=== PATIENT | female | born 1940 | race American Indian/Alaskan Native ===

== ENCOUNTER 2017-10-08 12:13 | Emergency (ER) | payer MEDICARE ==
[2017-10-08 12:52] LABS: Basophils % (Auto) 0.6 % (0.0-1.8); Hemoglobin 12.2 gm/dl (10.1-14.3); Lymphocytes % (Auto) 30.8 % (13.4-35.0); Mean Corpuscular HGB Conc 34 % (30-34); Mean Corpuscular Hemoglobin 32 pg (28-32); Mean Corpuscular Volume 93 fl (79-97); Monocytes # (Auto) 0.5 K/mm3 (0.0-0.8); Monocytes % (Auto) 14.8 % (0.0-7.3); Platelet Count 173 K/mm3 (140-440); Red Blood Count 3.87 M/mm3 (3.65-5.03); Red Cell Distribution Width 14.3 % (13.2-15.2)
[2017-10-08 13:46] LABS: BUN/Creatinine Ratio 26; Blood Urea Nitrogen 21 mg/dL (7-17); Calcium 8.9 mg/dL (8.4-10.2); Hemolysis Index 11
[2017-10-08] MEDS ORDERED: K-DUR PO ONE (16:14)
[2017-10-08] MEDS ORDERED: ALUM-MAG HYDROX-SIMETH 200-200-20MG/5ML PO ONE (16:14)
[2017-10-08] MEDS ORDERED: LIDOCAINE VISCOUS 2% PO ONE (16:14)
[2017-10-08] MEDS ORDERED: ZOFRAN ODT PO ONE (16:14)
[2017-10-08] MEDS ORDERED: CARAFATE PO ONE (17:16)
[2017-10-08] MEDS ORDERED: PEPCID PO ONE (17:16)
--- NOTE | 2017-10-08 18:32 | XRay Report ---
FINAL REPORT EXAM: XR ANKLE 3+V LT HISTORY: nontraumatic ankle swelling TECHNIQUE: Frontal, lateral, mortise views left ankle Comparison: None FINDINGS: There is no evidence of fracture, subluxation, lytic or blastic change or periosteal reaction. The mortise joint is maintained. There is soft tissue swelling at the level of the ankle. IMPRESSION: 1. Soft tissue swelling without plain film evidence of bony abnormality. If further imaging is required, CT or MRI may be helpful.
--- NOTE | 2017-10-08 19:18 | Emergency Department Report ---
ED Chest Pain HPI - General Chief Complaint: Chest Pain Stated Complaint: LOWER PAINS Time Seen by Provider: 10/08/17 16:14 Source: patient, family, business records manager Mode of arrival: Ambulatory Limitations: Language Barrier - History of Present Illness Initial Comments: 2 days of substernal chest pain that is worse with food. Having nausea and intermittent vomiting when she eats. Pt says that it feels like acid reflux. Symptoms are nonexertional and nonpleuritic. Nonsmoker. No fam hx of ACS. No h/ o dvt/pe. Pt is also endorsing left lateral ankle pain x3 months, nontraumatic. Able to walk on it, but it does hurt. hasn't seen anyone for it. - Related Data Previous Rx's Medication Instructions Recorded Last Taken Type Sucralfate [Carafate] 1 gm PO ACHS #120 ml 10/08/17 Unknown Rx Allergies Allergy/AdvReac Type Severity Reaction Status Date / Time No Known Allergies Allergy Unverified 05/06/13 12:34 Heart Score - HEART Score History: Slightly suspicious EKG: Normal Age: > 65 Risk factors: 1-2 risk factors Troponin: < normal limit HEART Score: 3 ED Review of Systems ROS: Stated complaint: LOWER PAINS Other details as noted in HPI Comment: All other systems reviewed and negative Cardiovascular: chest pain Musculoskeletal: arthralgia, myalgia ED Past Medical Hx - Past Medical History Previous Medical History?: Yes Hx Hypertension: Yes Hx Arthritis: Yes - Surgical History Past Surgical History?: Yes Additional Surgical History: abd sx. left shoulder sx - Social History Smoking Status: Never Smoker Substance Use Type: None - Medications Home Medications: Home Medications Medication Instructions Recorded Confirmed Last Taken Type Sucralfate [Carafate] 1 gm PO ACHS #120 ml 10/08/17 Unknown Rx ED Physical Exam - General Limitations: Language Barrier General appearance: alert, in no apparent distress - Head Head exam: Present: atraumatic, normocephalic - Eye Eye exam: Present: normal appearance - ENT ENT exam: Present: mucous membranes moist - Neck Neck exam: Present: normal inspection - Respiratory Respiratory exam: Present: normal lung sounds bilaterally. Absent: respiratory distress - Cardiovascular Cardiovascular Exam: Present: regular rate, normal rhythm. Absent: systolic murmur, diastolic murmur, rubs, gallop - GI/Abdominal GI/Abdominal exam: Present: soft, normal bowel sounds. Absent: distended, tenderness, guarding, rebound - Extremities Exam Extremities exam: Present: normal inspection - Expanded Lower Extremity Exam Left Ankle exam: Present: full ROM, tenderness (lateral malleolus), ecchymosis (4 cm circular echymmosis on lateral malleolus with blistering skin). Absent: swelling, deformity, crepidus, dislocation, erythema, anterior draw sign Neuro vascular tendon exam: Present: no vascular compromise. Absent: motor deficit - Back Exam Back exam: Present: normal inspection - Neurological Exam Neurological exam: Present: alert, oriented X3 - Psychiatric Psychiatric exam: Present: normal affect, normal mood - Skin Skin exam: Present: warm, dry, intact, normal color. Absent: rash ED Course Vital Signs 10/08/17 10/08/17 10/08/17 12:18 14:30 15:00 Temperature 98.6 F Pulse Rate 81 72 69 Respiratory 18 13 16 Rate Blood Pressure 137/83 147/83 138/79 O2 Sat by Pulse 97 97 97 Oximetry 10/08/17 10/08/17 10/08/17 15:30 16:00 16:31 Temperature Pulse Rate 71 74 83 Respiratory 17 17 15 Rate Blood Pressure 143/80 128/79 128/79 O2 Sat by Pulse 97 96 Oximetry 10/08/17 10/08/17 17:00 18:31 Temperature Pulse Rate 76 77 Respiratory 13 16 Rate Blood Pressure 149/119 129/74 O2 Sat by Pulse 97 Oximetry ED Medical Decision Making - Lab Data Result diagrams: 10/08/17 12:41 10/08/17 12:39 - EKG Data -: EKG Interpreted by [facility] EKG shows normal: sinus rhythm, axis, QRS complexes, ST-T waves Rate: normal - EKG Data Interpretation: other (Prolonged MD interval at 213, ventricular rate 77) - Radiology Data Radiology results: report reviewed, image reviewed - Medical Decision Making 77-year-old female with past medical history of hypertension that presents to the ER with chest pain. Vital signs are stable. Patient is well-appearing. EKG is nonischemic. The troponin is negative. Heart scores 3. Radiologist was concerned about the left lung apex and recommended comparison to prior images vs ct chest. From reviewing CXR on 05/29/13, it appears unchanged. It was interpreted at that time as chronic pleuroparenchymal changes. Patient was given a GI cocktail and felt symptomatically better. Likely chest pain is due to acid reflux. Patient will be given reading information on dietary management. She is also endorsing chronic pain of her left ankle. Imaging shows no acute osseous process. On exam, patient has a 4 cm ecchymotic area. Left foot is neurovascularly intact. Unsure the exact cause of the ecchymosis. Patient is walking on it without difficulty. I will instruct her to start Tylenol and ice for symptom control. SHe have been given a referral to the [facility] for reevaluation of her ankle and GERD. Potassium was mildly low at 2.9. Pt was given 40 mEq of PO potassium in the ER. - Differential Diagnosis ACS, pneumonia, PE, GERD, aortic rupture versus dissection, fracture Critical care attestation.: If time is entered above; I have spent that time in minutes in the direct care of this critically ill patient, excluding procedure time. ED Disposition Clinical Impression: GERD (gastroesophageal reflux disease), Left lateral ankle pain, Hypokalemia Disposition: TO HOME OR SELFCARE Is pt being admited?: No Does the pt Need Aspirin: No Condition: Stable Instructions: Gastritis (ED), Diet for Ulcers and Gastritis (ED), Hypokalemia ( ED) Additional Instructions: Start taking a daily 20 mg pepcid for the next week. This can be purchased over- the-counter at [email or web address]. It appears that you have a bruise of your left ankle. Apply ice and take 975 mg tylenol every 6 hours as needed for pain relief. Follow up with the [facility] for re- evaluation of your ankle pain and acid reflux. Prescriptions: Sucralfate [Carafate] 1 gm PO ACHS #120 ml Referrals: [facility] [Outside] - 3-5 Days
--- NOTE | 2017-10-08 20:09 | XRay Report ---
FINAL REPORT EXAM: XR CHEST 1V AP HISTORY: chest pain TECHNIQUE: Frontal portable view of the chest Comparison: None FINDINGS: There is abnormal increased soft tissue density in the left lung apex with associated pleural thickening. There is the appearance of an abnormal collection of air in this region. The cardiac silhouette appears to be enlarged. The thoracic aorta is not well visualized. The bony structures the are unremarkable in appearance. Visualization detail of the thoracic spine is limited. IMPRESSION: 1. Abnormal increased soft tissue density left lung apex with possible associated abnormal collection of air in this region. Differential diagnosis includes tumor, infection or postsurgical change. Comparison with previous chest x-ray is recommended. If no prior chest x-ray is available for comparison, CT chest would be helpful for further evaluation. 2. Enlarged cardiac silhouette.
[2017-10-08 21:21] VITALS: BP 133/70
== END 2017-10-08 21:16 | disposition home or self-care (01) ==
LOC: ED 12:13
DX: K21.9 Gastro-esophageal reflux disease without esophagitis (principal); E87.6 Hypokalemia; M25.571 Pain in right ankle and joints of right foot; I10 Essential (primary) hypertension; M19.90 Unspecified osteoarthritis, unspecified site
CPT/HCPCS: 36415; 71045; 80048; 84484; 85025; 93005; 93010; Q0162